=== PATIENT | female | born 1965 | race Caucasian/White ===

== ENCOUNTER → 2016-11-03 | Outpatient (CLI) | payer BC, OTHER ==
--- NOTE | 2016-11-03 09:59 | RADRPT ---
PROCEDURE: Left knee x-ray CLINICAL INDICATION: Knee injury and pain. TECHNIQUE: AP, lateral and oblique views of the left knee were obtained. COMPARISON: None FINDINGS: There is normal mineralization. No acute fracture or dislocation is seen. Degenerative tricompartment joint line spurring. Patellofemoral joint space narrowing. Trace joint effusion. There is no significant soft tissue swelling. IMPRESSION: Tricompartment degenerative changes of the knee. No acute fracture or dislocation. RPTAT:AAJJ Physician Magali Date Time Electronically viewed and signed by Physician Magali on 11/03/2016 09:59 ML/
--- NOTE | 2016-11-04 08:33 | RADRPT ---
PROCEDURE: XR pelvis/left hip. CLINICAL INDICATION: Hip pain TECHNIQUE: AP pelvis/AP and lateral left hip views performed COMPARISON: No prior studies are available for comparison. FINDINGS: L5-S1 posterior fixation with pedicle screws and connecting rods. There is mild bilateral hip osteoarthrosis. This is associated with joint space narrowing, subchondr al sclerosis and osteophytosis. There is normal mineralization. No fractures or osseous lesions ar e identified. The soft tissues are unremarkable. IMPRESSION: Mild bilateral hip osteoarthrosis. RPTAT: HGDB .David Marcila MD, MD Date Time Electronically viewed and signed by .David Marcial MD, on 11/04/2016 08:32 .B/
== END | disposition home or self-care (01) ==
LOC: HKI 09:59
PROVIDERS: ATTEND Orthopaedic Surgery
DX: M17.12 Unilateral primary osteoarthritis, left knee (principal)
CPT/HCPCS: 73502; 73564; G0463